=== PATIENT | female | born 1960 | race Caucasian/White ===

== ENCOUNTER 2016-11-21 10:23 | Emergency (ER) | payer OTHER, MEDICAID ==
[~2016-11-21] VITALS: Ht 160 cm; Wt 39.9 kg
[~2016-11-21 10:23] MED LIST: CELEXA; DIVA500T7; HALDOL; TRAZ100T2
[2016-11-21 11:56] LABS: Urine Bilirubin Negative (Negative); Urine Blood Negative /uL (Negative); Urine Color Yellow (Yellow); Urine Glucose Normal (Normal); Urine Ketone Negative (Negative); Urine Nitrite Negative (Negative); Urine RBC None Seen /hpf (0 - 4); Urine Squamous Epithelial Cell FEW /hpf (<5); Urine Urobilinogen Normal (Negative)
[2016-11-21 12:51] LABS: Potassium 3.4 mmol/L (3.5-5.1)
[2016-11-21 12:52] LABS: Albumin 3.7 g/dL (3.4-5.0); BUN/Creatinine Ratio 4.8; Bilirubin, Total 0.5 mg/dL (0.2-1.0); Calcium 8.7 mg/dL (8.5-10.1); Total Protein 7.3 g/dL (6.4-8.2)
[2016-11-21 12:59] LABS: Basophils # (auto) 0 uL; Basophils % (auto) 0.6 % (0.0-2.0); Eosinophils # (auto) 0.1 uL; Eosinophils % (auto) 0.8 % (0.0-7.0); Hematocrit 36.8 % (36.0-46.0); Hemoglobin 12.8 g/dL (12.2-16.2); Lymphocytes # (auto) 1.5 uL; Lymphocytes % (auto) 22.4 % (10.0-50.0); Monocytes # (auto) 0.7 uL; Monocytes % (auto) 9.6 % (0.0-12.0); Neutrophils # (auto) 4.6 uL; Neutrophils % (auto) 66.6 % (37.0-80.0); White Blood Cell 6.8 10^3/uL (4.4-10.8)
[2016-11-21 13:00] LABS: Mean Corpuscular Hemoglobin 33.8 pg (28.0-32.0); Mean Corpuscular Hgb Conc. 34.8 g/dL (32.0-36.0); Mean Corpuscular Volume 97.1 fL (80.0-100.0); Mean Platelet Volume 6.5 fL (6.9-10.8); Platelet Count (auto) 225 10^3/uL (140-450); Red Cell Distribution Width 13.2 % (11.8-14.3)
[2016-11-21 14:45] VITALS: BP 107/67
== END 2016-11-21 16:57 | disposition home or self-care (01) ==
LOC: ER 10:23
DX: S30.1XXA Contusion of abdominal wall, initial encounter (principal); S00.03XA Contusion of scalp, initial encounter; N28.1 Cyst of kidney, acquired; N39.0 Urinary tract infection, site not specified; N20.0 Calculus of kidney; J44.9 Chronic obstructive pulmonary disease, unspecified; F17.210 Nicotine dependence, cigarettes, uncomplicated; E07.9 Disorder of thyroid, unspecified; Z98.51 Tubal ligation status; Z79.899 Other long term (current) drug therapy; Y08.89XA Assault by other specified means, initial encounter; Y93.89 Activity, other specified; Y99.8 Other external cause status; Y92.89 Other specified places as the place of occurrence of the external cause
CPT/HCPCS: 36415; 70450; 74176; 80053; 81001; 85025